=== PATIENT | female | born 1980 | race Caucasian/White ===

== ENCOUNTER 2023-01-25 03:48 | Emergency (ER) | payer OTHER ==
[2023-01-25 03:59] VITALS: PULSE 66; RESP 18; TEMP 98.4; BMI 23.3
[2023-01-25] MEDS ORDERED: SODIUM CHLORIDE 0.9% 500 ML INFUS.BAG IV ONE (04:02)
[2023-01-25 04:36] LABS: BASO % 0.8 % (0-2.0); HEMATOCRIT 34.3 % (32.4-45.2); HEMOGLOBIN 11.8 GM/dL (10.7-15.3); LYMPH % 37.2 % (8-40); MCH 33.4 pg (25.7-33.7); MCHC 34.5 g/dl (32.0-36.0); MEAN CELL VOLUME 96.7 fl (80-96); MEAN PLT VOLUME 9.9 fl (7.5-11.1); MONO % 5.4 % (3.8-10.2); NEUT % 52.6 % (42.8-82.8); RBC 3.55 M/mm3 (3.60-5.2); RDW 12.3 % (11.6-15.6); WHITE BLOOD COUNT 6.3 K/mm3 (4.0-10.0)
[2023-01-25 04:46] LABS: EPI CELLS 32 /uL (0-25.1); HYALINE CASTS 7 /uL (0-3.1); PH,URINE 7.5 (5.0-8.0); URINE APPEARANCE CLEAR; URINE BACTERIA 19 /uL (0-1359); URINE BILIRUBIN NEGATIVE (NEGATIVE); URINE COLOR YELLOW; URINE GLUCOSE (UA) NEGATIVE (NEGATIVE); URINE KETONE NEGATIVE (NEGATIVE); URINE LEUK ESTERASE NEGATIVE (NEGATIVE); URINE NITRITE NEGATIVE (NEGATIVE); URINE PROTEIN 1+ (NEGATIVE); URINE RBC 17 /uL (0-23.9); URINE WBC 18 /uL (0-25.8)
[2023-01-25 05:04] LABS: CHLORIDE 110 mmol/L (98-107); SODIUM 143 mmol/L (136-145)
[2023-01-25 05:06] LABS: ANION GAP 1 MMOL/L (8-16); CALCIUM 8.6 mg/dL (8.5-10.1); CO2 32 mmol/L (21-32)
[2023-01-25 05:07] LABS: ALBUMIN 3.3 g/dl (3.4-5.0); GLUCOSE,RANDOM 102 mg/dL (74-106)
[2023-01-25 05:09] LABS: CREATININE 0.5 mg/dL (0.55-1.3); SGOT/AST 23 U/L (15-37)
[2023-01-25 05:10] LABS: SGPT/ALT 55 U/L (13-61)
[2023-01-25 05:11] LABS: BILIRUBIN,TOTAL 0.2 mg/dL (0.2-1); TOT PROT 6.1 g/dl (6.4-8.2)
[2023-01-25 05:12] LABS: ALK PHOS 75 U/L (45-117)
[2023-01-25] MEDS ORDERED: ACETAMINOPHEN 500 MG TABLET (FP) PO ONE (05:55)
[2023-01-25] MEDS ORDERED: ACETAMINOPHEN 325 MG TABLET (FP) ONE (06:12)
[2023-01-25 06:20] LABS: PLATELET COUNT 116 10^3/uL (134-434)
[2023-01-25 06:22] VITALS: BP 115/86
== END 2023-01-25 06:30 | disposition home or self-care (01) ==
LOC: JER 03:48
DX: R55 Syncope and collapse (principal); R42 Dizziness and giddiness; R00.2 Palpitations; E11.9 Type 2 diabetes mellitus without complications
CPT/HCPCS: 36415; 80053; 81003; 82962; 83036; 84702; 85025; 87086; 93005; 93010; 99284-25